=== PATIENT | male | born 1975 | race Two or more races ===

== ENCOUNTER 2021-07-17 16:36 | Emergency (ER) | payer SELFPAY ==
[~2021-07-17] VITALS: Ht 182.9 cm; Wt 100.0 kg
[2021-07-17] MEDS ORDERED: ONDANSETRON HCL 4MG/2ML INJ IV STA (17:21)
[2021-07-17] MEDS ORDERED: ACETAMINOPHEN 325MG TABLET PO STA (17:21)
[2021-07-17] MEDS ORDERED: KETOROLAC 30MG/ML VIAL IV STA (17:21)
[2021-07-17] MEDS ORDERED: SODIUM CHLORIDE 0.9% 1,000 ML IV ONE (17:30)
[2021-07-17 17:51] LABS: BASOPHILS % 0.3 % (0.0-2.0); EOSINOPHILS % 1.6 % (0.0-5.0); HEMATOCRIT. 40.7 % (42.0-52.0); HEMOGLOBIN. 13.6 g/dL (14.0-18.0); LYMPHOCYTES % 10.4 % (20.0-50.0); MEAN CORPUSCULAR HEMOGLOBIN 30.1 pg (28.0-32.0); MEAN CORPUSCULAR VOLUME 90.3 fL (80.0-94.0); MEAN PLATELET VOLUME 11.7 fl (7.4-10.4); NEUTROPHILS % 77.7 % (40.0-76.0); PLATELET 152 x1000/uL (130-400); RED BLOOD CELL COUNT 4.51 mill/uL (4.7-6.1); RED CELL DISTRIBUTION WIDTH 12.2 % (11.6-14.6)
[2021-07-17 17:57] LABS: CHLORIDE 103 mEq/L (98-107)
[2021-07-17] MEDS ORDERED: AZITHROMYCIN 500 MG TABLET PO NR (18:15)
[2021-07-17] MEDS ORDERED: ONDA4TAB11 PO (19:42)
[2021-07-17] MEDS ORDERED: IBUP-2029 MT (19:42)
[2021-07-17] MEDS ORDERED: AZIT500T8 MT (19:42)
[2021-07-17 20:32] VITALS: BP 121/76
== END 2021-07-17 20:33 | disposition home or self-care (01) ==
LOC: ER 16:40 → CANBEDREQ 22:40
DX: U07.1 COVID-19 (principal); J12.82 Pneumonia due to coronavirus disease 2019; R63.0 Anorexia; Z68.29 Body mass index [BMI] 29.0-29.9, adult
CPT/HCPCS: 36415; 71045; 80053; 83605; 84145; 85025; 87040; 93005; 96361; 96374; 96375; 99285; C9803; J1885; J2405; J7030; U0003; U0005; Z7610